=== PATIENT | female | born 1975 | race African-American/Black ===

== ENCOUNTER 2023-08-10 18:57 | Emergency (ER) | payer OTHER ==
[~2023-08-10] VITALS: Ht 165.1 cm; Wt 108.9 kg
[2023-08-10] MEDS ORDERED: IBUP-1957 PO (19:47)
[2023-08-10 20:10] VITALS: BP 131/74; TEMP 98; O2SAT 98
== END 2023-08-10 20:11 | disposition home or self-care (01) ==
LOC: ER 19:02
DX: S93.492A Sprain of other ligament of left ankle, initial encounter (principal); Z79.899 Other long term (current) drug therapy; W31.89XA Contact with other specified machinery, initial encounter; Y93.89 Activity, other specified; Y92.89 Other specified places as the place of occurrence of the external cause; Y99.8 Other external cause status
CPT/HCPCS: 73610-TC; 73630-TC